=== PATIENT | female | born 1990 | race Two or more races ===

== ENCOUNTER 2021-01-20 16:00 | Observation (INO) | payer MEDICAID ==
[~2021-01-20] VITALS: Ht 165.1 cm; Wt 86.2 kg
[2021-01-20] MEDS ORDERED: ACETAMINOPHEN 325 MG TAB PO ONE (17:00)
== END 2021-01-20 17:44 | disposition home or self-care (01) ==
LOC: LDRP 16:00
PROVIDERS: ADMIT Specialist; ATTEND Specialist
DX: O26.892 Other specified pregnancy related conditions, second trimester (principal); R10.30 Lower abdominal pain, unspecified; Z3A.27 27 weeks gestation of pregnancy
CPT/HCPCS: 59025; 81002; G0378

== ENCOUNTER 2021-02-24 13:13 | Observation (INO) | payer MEDICAID ==
[~2021-02-24] VITALS: Ht 165.1 cm; Wt 86.2 kg
[2021-02-24] MEDS ORDERED: TERBUTALINE SULFATE 1 MG/ML 1ML VIAL SC SCH (14:00)
[2021-02-24] MEDS ORDERED: TERBUTALINE SULFATE 1 MG/ML 1ML VIAL SC ONE (14:04)
[2021-02-24] MEDS ORDERED: NIFEdipine 10 MG CAP PO ONE (14:45)
[2021-02-24 17:21] LABS: Urine Bacteria FEW /hpf (None Seen); Urine Blood Negative /uL (Negative); Urine Specific Gravity 1.014 (1.001-1.035); Urine WBC 1 /hpf (0 - 5)
== END 2021-02-24 17:10 | disposition home or self-care (01) ==
LOC: LDRP 13:13
PROVIDERS: ADMIT Obstetrics & Gynecology; ATTEND Obstetrics & Gynecology
DX: O60.03 Preterm labor without delivery, third trimester (principal); O36.8130 Decreased fetal movements, third trimester, not applicable or unspecified; O26.893 Other specified pregnancy related conditions, third trimester; R10.9 Unspecified abdominal pain; Z3A.32 32 weeks gestation of pregnancy
CPT/HCPCS: 59025; 76817; 76818; 81001; 81002; 94760; 96372; G0378; J3105

== ENCOUNTER 2021-03-02 07:09 | Observation (INO) | payer MEDICAID ==
[2021-03-02] MEDS ORDERED: NIF10C GT (14:56)
== END 2021-03-02 15:00 | disposition home or self-care (01) ==
LOC: LDRP 14:00
PROVIDERS: ADMIT Obstetrics & Gynecology; ATTEND Obstetrics & Gynecology
DX: O60.03 Preterm labor without delivery, third trimester (principal); Z3A.32 32 weeks gestation of pregnancy
CPT/HCPCS: 59025; 81002; G0378

== ENCOUNTER 2021-03-09 08:35 | Observation (INO) | payer MEDICAID ==
[~2021-03-09 08:35] MED LIST: NIF10C GT
== END 2021-03-09 14:30 | disposition home or self-care (01) ==
LOC: LDRP 13:50
PROVIDERS: ADMIT Obstetrics & Gynecology; ATTEND Obstetrics & Gynecology
DX: O60.03 Preterm labor without delivery, third trimester (principal); Z3A.33 33 weeks gestation of pregnancy
CPT/HCPCS: 59025; 81002; 94760; G0378

== ENCOUNTER 2021-03-17 13:55 | Observation (INO) | payer MEDICAID | END 2021-03-17 14:45 | disposition home or self-care (01) | LOC: LDRP 13:55 | PROVIDERS: ADMIT Specialist; ATTEND Specialist | DX: O60.03 Preterm labor without delivery, third trimester (principal); Z3A.35 35 weeks gestation of pregnancy | CPT/HCPCS: 59025; 81002; G0378 ==

== ENCOUNTER 2021-03-24 08:29 | Observation (INO) | payer MEDICAID ==
[2021-03-24] MEDS ORDERED: LACTATED RINGER'S 1,000 ML IV ONE (15:00)
[2021-03-24] MEDS ORDERED: PREN-96 PO (15:38)
== END 2021-03-24 17:40 | disposition home or self-care (01) ==
LOC: LDRP 14:06
PROVIDERS: ADMIT Obstetrics & Gynecology; ATTEND Obstetrics & Gynecology
DX: O60.03 Preterm labor without delivery, third trimester (principal); Z3A.36 36 weeks gestation of pregnancy
CPT/HCPCS: 59025; 76818; 81002; 94760; 96360; G0378

== ENCOUNTER 2021-03-31 18:40 | Observation (INO) | payer MEDICAID ==
[~2021-03-31 18:40] MED LIST changes: +PREN-96 PO
== END 2021-03-31 20:07 | disposition home or self-care (01) ==
LOC: LDRP 18:40
PROVIDERS: ADMIT Obstetrics & Gynecology; ATTEND Obstetrics & Gynecology
DX: O60.03 Preterm labor without delivery, third trimester (principal); Z3A.37 37 weeks gestation of pregnancy
CPT/HCPCS: 59025; 81002; G0378

== ENCOUNTER → 2024-04-17 | Outpatient (CLI) | payer MEDICAID ==
[~2024-04-17] MED LIST changes: -NIF10C GT; +NIFE10CA52 GT
== END | disposition home or self-care (01) ==
LOC: Rad HDHVI 10:48
PROVIDERS: ATTEND Internal Medicine Cardiovascular Disease
DX: R06.02 Shortness of breath (principal); R07.89 Other chest pain
CPT/HCPCS: 93306